=== PATIENT | male | born 1960 | race Caucasian/White ===

== ENCOUNTER 2021-06-24 04:37 | Day surgery (SDC) | payer BC ==
[2021-06-22 15:52] VITALS: BMI 24.0
[2021-06-24 11:36] VITALS: TEMP 97.5
[2021-06-24 12:04] VITALS: BP 124/74; PULSE 51
== END 2021-06-24 12:19 | disposition home or self-care (01) ==
LOC: JASU-ENDO 04:37
PROVIDERS: ATTEND Internal Medicine Gastroenterology
PROC: 0DB78ZX Excision of Stomach, Pylorus, Via Natural or Artificial Opening Endoscopic, Diagnostic (ICD-10-PCS; 2021-06-24)
PROC: 0DB28ZX Excision of Middle Esophagus, Via Natural or Artificial Opening Endoscopic, Diagnostic (ICD-10-PCS; 2021-06-24)
PROC: 0DB38ZX Excision of Lower Esophagus, Via Natural or Artificial Opening Endoscopic, Diagnostic (ICD-10-PCS; principal; 2021-06-24 10:15)
DX: K29.50 Unspecified chronic gastritis without bleeding (principal)
CPT/HCPCS: 88305-TC; 88342-TC